=== PATIENT | female | born 1990 | race Caucasian/White ===

== ENCOUNTER 2016-05-12 01:04 | Emergency (ER) | payer SELFPAY ==
[~2016-05-12] VITALS: Ht 180.3 cm; Wt 108.9 kg
[2016-05-12] MEDS ORDERED: ONDANSETRON 4 MG (ZOFRAN) ORAL DISSOLVE TAB SL STA (01:25)
[2016-05-12] MEDS ORDERED: RX-ONDANSETRON 4 MG ODT (ZOFRAN) PPK #4 PO STA (01:25)
[2016-05-12] MEDS ORDERED: IBUPROFEN 800 MG (MOTRIN) TAB PO STA (01:25)
--- NOTE | 2016-05-12 01:35 | ED General ---
General Chief Complaint: Cough/Cold/Flu Symptoms Stated Complaint: N/V/ MUSCEL ACHE COUGH FEVER Nursing Triage Note: Pt presents to ED with c/o productive cough, fever, body aches, weakness, fever , N,V,D. Last dose of Tylenol at midnight. Afebrile. Nursing Sepsis Screen: No Definite Risk Source of Information: Patient Exam Limitations: No Limitations History of Present Illness Time Seen by Provider: 01:15 Initial Comments Here with report of fever, body aches, vomiting and diarrhea. She states that is settled down some but still has progressed for congestion and overall does not feel well. She did take Tylenol couple hours ago and that seems to help some. States ibuprofen is not working well. Timing/Duration: 1-2 Days Severity: Moderate Associated Systoms: No Chest Pain, Cough Fever/Chills Malaise Nausea/ VomitingNo Shortness of Air Allergies and Home Medications Allergies Coded Allergies: No Known Drug Allergies (Unverified , 05/12/16) Constitutional: see HPI chills fever EENTM: nose congestion Respiratory: see HPI cough Cardiovascular: No chest pain, No edema Gastrointestinal: No abdominal pain, diarrhea nausea vomiting Genitourinary: no symptoms reported Musculoskeletal: see HPI muscle pain (body aches) Skin: no symptoms reported Psychiatric/Neurological: No Symptoms Reported Past Bqwiacd-Pskugc-Rvvcte Hx Patient Social History Alcohol Use: Denies Use Recreational Drug Use: No Smoking Status: Current Everyday Smoker Type Used: Cigarettes 2nd Hand Smoke Exposure: No Recent Foreign Travel: No Contact w/Someone Who Travel: No Recent Infectious Disease Expo: No Recent Hopitalizations: No Immunizations Up To Date Tetanus Booster (TDap): Unknown Seasonal Allergies Seasonal Allergies: No Surgeries HX Surgeries: No Respiratory Hx Respiratory Disorders: No Cardiovascular Hx Cardiac Disorders: No Neurological Hx Neurological Disorders: No Reproductive System Hx Reproductive Disorders: No Sexually Transmitted Disease: No HIV/AIDS: No Genitourinary Hx Genitourinary Disorders: No Gastrointestinal Hx Gastrointestinal Disorders: No Musculoskeletal Hx Musculoskeletal Disorders: No Endocrine Hx Endocrine Disorders: No HEENT HX ENT Disorders: No Cancer Hx Cancer: No Psychosocial Hx Psychiatric Problems: No Integumentary HX Skin/Integumentary Disorder: No Blood Transfusions Hx Blood Disorders: No Adverse Reaction to a Blood Tr: No Reviewed Nursing Assessment Reviewed/Agree w Nursing PMH: Yes Family Medical History Significant Family History: No Pertinent Family Hx Physical Exam Vital Signs Vital Sign - Last 12Hours Capillary Refill : Less Than 3 Seconds General Appearance: No Apparent Distress WD/WN HEENT: PERRL/EOMI Pharynx Normal Other (moderate bilateral nasal congestion with clear rhinorrhea and moderate erythema) Neck: Non Tender Supple Respiratory: Lungs Clear Normal Breath Sounds Cardiovascular: Regular Rate, Rhythm No Murmur Gastrointestinal: Non Tender Soft Back: Normal Inspection No CVA Tenderness No Vertebral Tenderness Extremity: Non Tender No Calf Tenderness Neurologic/Psychiatric: Alert Oriented x3 Skin: Normal Color Warm/Dry Progress/Results/Core Measures Results/Orders My Orders Orders-NEVIN KATZ MD Ibuprofen Tablet (Motrin Tablet) (05/12/16 01:25) Ondansetron Oral Dissolve Tab (Zofran (05/12/16 01:25) Rx-Ondansetron Po (Rx-Zofran Po) (05/12/16 01:25) Vital Signs/I&O Vital Sign - Last 12Hours 05/12/16 05/12/16 01:18 01:18 Temp 97.2 Pulse 89 Resp 18 B/P 147/104 Pulse Ox 99 O2 Delivery Room Air Room Air Blood Pressure Mean: 118 Progress Note : Progress Note Seen and evaluated. Ibuprofen 800 mg by mouth and Zofran 4 mg by mouth. Influenza screen. Zofran go pack. Discharged home with return precautions. Patient verbalize understanding instructions and agreement with plan. Departure Impression Impression: Primary Impression: Upper respiratory infection Qualified Code: J06.9 - Acute upper respiratory infection, unspecified Additional Impressions: Vomiting and diarrhea Fever Qualified Code: R50.9 - Fever, unspecified Disposition: 01 HOME, SELF-CARE Condition: Improved Departure-Patient Inst. Decision time for Depature: 01:34 Referrals: NO,LOCAL PHYSICIAN (PCP) Primary Care Physician Patient Instructions: Diarrhea in Adolescents and Adults, Nausea and Vomiting, Adult, Viral Upper Respiratory Infection, Adult (DC) Add. Discharge Instructions: All discharge instructions reviewed with patient and/or family. Voiced understanding. Clear liquid diet for 24 hours and then advance as tolerated. Follow-up with your DrJames in a few days for recheck. Return for worse pain, fever, vomiting, weakness, breathing problems or other concerns as needed. You may take Tylenol 1000 mg every 8 hours as needed for pain or fever. You may take ibuprofen 800 mg every 8 hours as needed for fever or pain. Work/School Note: Work Release Form Date Seen in the Emergency Department: May 12, 2016 Return to Work: May 13, 2016 Restrictions: Return-No Fever (24hrs) NEVIN KATZ MD May 12, 2016 01:35
[2016-05-12 02:15] VITALS: BP 129/64
== END 2016-05-12 02:16 | disposition home or self-care (01) ==
LOC: ER 01:10
DX: J06.9 Acute upper respiratory infection, unspecified (principal); R11.2 Nausea with vomiting, unspecified; R19.7 Diarrhea, unspecified; F17.210 Nicotine dependence, cigarettes, uncomplicated
CPT/HCPCS: 87804; 99282